=== PATIENT | male | born 1985 | race Caucasian/White ===

== ENCOUNTER 2024-02-23 15:06 | Outpatient (CLI) | payer OTHER, SELFPAY ==
--- NOTE | ~2024-02-23 | MR_ITS ---
EXAMINATION: MR ankle LT wo con DATE: 02/23/2024 15:57 INDICATION: Pain in left ankle and joint of left foot. TECHNIQUE: Magnetic resonance imaging (MRI) of the left ankle was performed without intravenous contr ast. Sequences included sagittal PD-weighted FS FSE, sagittal PD-weighted FSE, coronal PD-weighted FS FSE, coronal PD-weighted FSE, axial PD-weighted FS FSE, and axial PD-weighted FSE. COMPARISON: None. FINDINGS: Medial ankle ligaments: There are changes of prior sprain of deltoid ligament characterized by thickening and increased signa l of the superficial component and disorganized fibers of the deep component. Lateral ankle ligaments: There are complete tears of anterior talofibular ligament and calcaneofibular ligament. Posterior warner ofibular ligament is intact. There is thickening and increased signal involving anterior tibiofibular ligament. Posterior tibiofibular ligament is intact. Tendons: The medial and anterior ankle tendons are normal. There is mild tenosynovitis of the peroneal tendons . There is a longitudinal split tear of peroneus brevis tendon. There is mild tendinopathy of peroneu s longus tendon. There is mild distal Achilles tendinopathy There is soft tissue swelling about the a nkle, lateral worse than medial. There is mild pre-Achilles bursitis. Plantar fascia: There is plantar fasciitis characterized by thickening and increased signal intensity involving the c entral band of plantar fascia. Bones/other: The talar dome is normal. Fluid: There are small ankle joint and subtalar joint effusions. IMPRESSION: 1. Medial and lateral ankle sprains. 2. Longitudinal split tear of peroneus brevis tendon. 3. Plantar fasciitis. Reviewed, dictated and finalized at location A.
== END 2024-02-23 15:07 | disposition home or self-care (01) ==
LOC: ANHIMG 15:11
PROVIDERS: PCP Family Medicine; Visit Provider Family Medicine
DX: M25.572 Pain in left ankle and joints of left foot (principal); M72.2 Plantar fascial fibromatosis; S93.492A Sprain of other ligament of left ankle, initial encounter; X58.XXXA Exposure to other specified factors, initial encounter
CPT/HCPCS: 73721